=== PATIENT | female | born 1960 | race Caucasian/White ===

== ENCOUNTER 2024-10-20 08:41 | Outpatient (CLI) | payer MEDICARE | END 2024-10-20 08:42 | disposition home or self-care (01) | LOC: CSHSLEEP 08:41 | PROVIDERS: ATTEND Family Medicine | DX: G47.33 Obstructive sleep apnea (adult) (pediatric) (principal); R53.83 Other fatigue; F31.9 Bipolar disorder, unspecified; E66.9 Obesity, unspecified; Z68.35 Body mass index [BMI] 35.0-35.9, adult; R06.83 Snoring; G47.00 Insomnia, unspecified | CPT/HCPCS: 95800 ==

== ENCOUNTER 2024-11-09 09:00 | Outpatient (CLI) | payer MEDICARE | END 2024-11-09 09:01 | disposition home or self-care (01) | LOC: CSHSLEEP 09:00 | PROVIDERS: ATTEND Family Medicine | DX: G47.33 Obstructive sleep apnea (adult) (pediatric) (principal); R53.83 Other fatigue; F31.9 Bipolar disorder, unspecified; E66.9 Obesity, unspecified; Z68.35 Body mass index [BMI] 35.0-35.9, adult; R06.83 Snoring; G47.00 Insomnia, unspecified | CPT/HCPCS: 95811 ==